=== PATIENT | female | born 1945 | race Caucasian/White ===

== ENCOUNTER 2021-03-03 08:45 | Inpatient (IN) ==
[2021-03-03] MEDS ORDERED: 0.9 % Sodium Chloride 500 ML ONE (09:22)
[2021-03-03] MEDS ORDERED: *HR* FentaNYL (PF) 100 MCG/2 ML VIAL ONE (09:33)
[2021-03-03] MEDS ORDERED: *HR* Midazolam HCl 2 MG/2 ML VIAL ONE (09:34)
[2021-03-03] MEDS ORDERED: *HR* FentaNYL (PF) 100 MCG/2 ML VIAL IVP ONE (09:36)
[2021-03-03] MEDS ORDERED: *HR* Midazolam HCl 2 MG/2 ML VIAL IVP ONE (09:36)
[2021-03-03] MEDS ORDERED: *HR* HYDROmorphone (PF) 1 MG/ML SYRINGE IVP ONE (12:43)
[2021-03-03] MEDS ORDERED: Albuterol 2.5 MG/3 ML NEBULIZER IH PRN (16:38)
[2021-03-03] MEDS ORDERED: Melatonin 3 MG TABLET PO PRN (16:42)
[2021-03-03] MEDS ORDERED: Acetaminophen 325 MG TABLET PO PRN (16:42)
[2021-03-03] MEDS ORDERED: Naloxone 0.4 MG/ML INJ IVP PRN (16:42)
[2021-03-03] MEDS: lisinopriL 20 MG TABLET PO SCH (18:02)
[2021-03-03] MEDS: *HR* HYDROcodone/Acet 5/325 mg TABLET PO PRN (20:27)
[2021-03-04] MEDS: *HR* HYDROcodone/Acet 5/325 mg TABLET PO PRN ×4 (02:55→22:53)
[2021-03-04] MEDS: Ondansetron 4 MG/2 ML VIAL IVP PRN (02:57)
[2021-03-04 07:48] LABS: Hematocrit 36.2 % (35.3-44.9); Hemoglobin 11.3 g/dL (11.5-15.4); Mean Corpuscular HGB Conc 31.2 g/dL (31.6-35.5); Mean Corpuscular Hemoglobin 27.8 pg (28.0-33.3); Mean Corpuscular Volume 88.9 fL (83.0-100.0); Mean Platelet Volume 9.4 fL (9.4-12.4); Platelet Count 316 K/mcL (140-400); Red Blood Count 4.07 M/mcL (3.82-4.97); Red Cell Distribution Width 14.1 % (11.5-14.5); White Blood Count 6.5 K/mcL (4.3-11.1)
[2021-03-04 08:15] LABS: BUN/Creatinine Ratio 16 (6-26); Blood Urea Nitrogen 10 mg/dL (8-23); Carbon Dioxide 27 mEq/L (23-29); Chloride 105 mEq/L (98-107); Glucose 97 mg/dL (70-105); Magnesium 1.9 mg/dL (1.6-2.6); Osmolality,Calculated 281 (280-300); Phosphorous 2.9 mg/dL (2.7-4.5); Potassium 4.6 mEq/L (3.5-5.1); Sodium 136 mEq/L (136-145); eGFR For African Americans > 60 (> 60); eGFR For Non-African Americans > 60 (> 60)
[2021-03-04] MEDS: lisinopriL 20 MG TABLET PO SCH (08:43)
[2021-03-05] MEDS: Ondansetron 4 MG/2 ML VIAL IVP PRN (03:17)
[2021-03-05 06:38] LABS: Hematocrit 37.1 % (35.3-44.9); Mean Corpuscular HGB Conc 32.3 g/dL (31.6-35.5); Mean Corpuscular Hemoglobin 28.6 pg (28.0-33.3); Mean Corpuscular Volume 88.5 fL (83.0-100.0); Mean Platelet Volume 9.3 fL (9.4-12.4); Platelet Count 337 K/mcL (140-400); Red Blood Count 4.19 M/mcL (3.82-4.97); Red Cell Distribution Width 14.2 % (11.5-14.5); White Blood Count 7.5 K/mcL (4.3-11.1)
[2021-03-05] MEDS: *HR* HYDROcodone/Acet 5/325 mg TABLET PO PRN ×2 (06:40→23:04)
[2021-03-05 06:55] LABS: BUN/Creatinine Ratio 24 (6-26); Blood Urea Nitrogen 17 mg/dL (8-23); Calcium 9.2 mg/dL (8.6-10.3); Carbon Dioxide 27 mEq/L (23-29); Chloride 104 mEq/L (98-107); Glucose 102 mg/dL (70-105); Magnesium 1.9 mg/dL (1.6-2.6); Osmolality,Calculated 286 (280-300); Potassium 4.6 mEq/L (3.5-5.1); Sodium 137 mEq/L (136-145); eGFR For African Americans > 60 (> 60); eGFR For Non-African Americans > 60 (> 60)
[2021-03-05] MEDS: lisinopriL 20 MG TABLET PO SCH (08:32)
[2021-03-05] MEDS ORDERED: 0.9 % Sodium Chloride 500 ML ONE (11:15)
[2021-03-05] MEDS: *HR* OxyCODONE Immed Rel 5 MG TABLET PO PRN (14:54)
[2021-03-06 02:35] LABS: Hematocrit 35.9 % (35.3-44.9); Hemoglobin 11.3 g/dL (11.5-15.4); Mean Corpuscular HGB Conc 31.5 g/dL (31.6-35.5); Mean Corpuscular Hemoglobin 27.9 pg (28.0-33.3); Mean Corpuscular Volume 88.6 fL (83.0-100.0); Mean Platelet Volume 9.1 fL (9.4-12.4); Platelet Count 290 K/mcL (140-400); Red Blood Count 4.05 M/mcL (3.82-4.97); Red Cell Distribution Width 13.9 % (11.5-14.5); White Blood Count 5.1 K/mcL (4.3-11.1)
[2021-03-06] MEDS: *HR* HYDROcodone/Acet 5/325 mg TABLET PO PRN ×2 (05:00→20:20)
[2021-03-06] MEDS: lisinopriL 20 MG TABLET PO SCH (09:43)
[2021-03-06] MEDS: *HR* OxyCODONE Immed Rel 5 MG TABLET PO PRN (09:44)
[2021-03-07] MEDS: *HR* OxyCODONE Immed Rel 5 MG TABLET PO PRN ×2 (08:53→20:28)
[2021-03-07] MEDS: lisinopriL 20 MG TABLET PO SCH (08:54)
[2021-03-08] MEDS: predniSONE 20 MG TABLET PO SCH (09:20)
[2021-03-08] MEDS: lisinopriL 20 MG TABLET PO SCH (09:21)
[2021-03-08] MEDS: *HR* OxyCODONE Immed Rel 5 MG TABLET PO PRN (17:45)
[2021-03-08] MEDS: *HR* HYDROcodone/Acet 5/325 mg TABLET PO PRN (20:56)
[2021-03-09] MEDS: lisinopriL 20 MG TABLET PO SCH (07:56)
[2021-03-09] MEDS: predniSONE 20 MG TABLET PO SCH (07:56)
[2021-03-09] MEDS: *HR* HYDROcodone/Acet 5/325 mg TABLET PO PRN (15:55)
[2021-03-09] MEDS ORDERED: Morphine Sulfate 2 MG/ML SYRINGE IVP ONE (16:03)
[2021-03-10] MEDS: *HR* HYDROcodone/Acet 5/325 mg TABLET PO PRN ×2 (05:10→12:39)
[2021-03-10] MEDS: Ondansetron 4 MG/2 ML VIAL IVP PRN (05:15)
[2021-03-10 05:55] LABS: Basophils # 0.1 K/mcL (0.0-0.2); Basophils % 1.3 %; Eosinophils # 0.2 K/mcL (0.0-0.6); Eosinophils % 2.7 %; Hematocrit 35.4 % (35.3-44.9); Hemoglobin 11.3 g/dL (11.5-15.4); Immature Granulocytes % 0.3 % (0-4); Lymphocytes # 2.6 K/mcL (0.6-4.6); Lymphocytes % 34.3 %; Mean Corpuscular HGB Conc 31.9 g/dL (31.6-35.5); Mean Corpuscular Hemoglobin 28.5 pg (28.0-33.3); Mean Corpuscular Volume 89.2 fL (83.0-100.0); Mean Platelet Volume 9.9 fL (9.4-12.4); Monocytes # 0.8 K/mcL (0.0-1.3); Monocytes % 10.7 %; Neutrophils # 3.8 K/mcL (1.6-8.9); Platelet Count 296 K/mcL (140-400); Red Blood Count 3.97 M/mcL (3.82-4.97); Segmented Neutrophils % 50.7 %; White Blood Count 7.5 K/mcL (4.3-11.1)
[2021-03-10 06:16] LABS: BUN/Creatinine Ratio 24 (6-26); Blood Urea Nitrogen 16 mg/dL (8-23); Calcium 9.2 mg/dL (8.6-10.3); Carbon Dioxide 27 mEq/L (23-29); Chloride 107 mEq/L (98-107); Glucose 87 mg/dL (70-105); Osmolality,Calculated 291 (280-300); Potassium 3.8 mEq/L (3.5-5.1); Sodium 140 mEq/L (136-145); eGFR For African Americans > 60 (> 60); eGFR For Non-African Americans > 60 (> 60)
[2021-03-10] MEDS: predniSONE 20 MG TABLET PO SCH (07:58)
[2021-03-10] MEDS: lisinopriL 20 MG TABLET PO SCH (07:58)
[2021-03-10] MEDS ORDERED: NIFEdipine XL (24 HR) 30 MG TAB.ER.24 PO SCH (10:00)
[2021-03-10] MEDS ORDERED: Gadolinium Contrast Agent (WT Based) IV PRN (11:05)
[2021-03-10] MEDS ORDERED: Isovue-370 500 ML BOTTLE IVP ONE ×2 (11:05)
[2021-03-10 11:10] VITALS: TEMP 98
[2021-03-10] MEDS ORDERED: Isovue-370 500 ML BOTTLE PO ONE (13:51)
[2021-03-10] MEDS: *HR* OxyCODONE Immed Rel 5 MG TABLET PO PRN (14:02)
[2021-03-10 14:06] VITALS: BP 130/100; PULSE 98; O2SAT 92
== END 2021-03-10 17:37 | disposition home or self-care (01) | DRG 200 ==
LOC: RAD 08:45 → 3NENU 08:45 → SUATTDRO 18:10
PROVIDERS: ADMIT Internal Medicine; ATTEND Internal Medicine